=== PATIENT | female | born 2000 | race Caucasian/White ===

== ENCOUNTER 2022-05-31 04:53 | Emergency (ER) ==
[~2022-05-31] VITALS: Ht 154.9 cm; Wt 51.8 kg
[2022-05-31 05:28] VITALS: BP 162/100
[2022-05-31 05:32] LABS: BASO # 0.1 10^3/uL (0.0-0.2); BASO % 0.3 % (0.0-1.0); HEMATOCRIT 27.7 % (36.0-47.0); HEMOGLOBIN 9.1 g/dl (12.0-15.5); LYMPH # 1.6 10^3/uL (1.5-5.0); LYMPH % 5.6 % (24.0-44.0); MEAN CORPUSCULAR HEMOGLOBIN 29.4 pg (27.0-33.0); MEAN CORPUSCULAR HGB CONC 32.9 g/dl (32.0-36.5); MEAN CORPUSCULAR VOLUME 89.6 fl (80.0-96.0); MONO # 1.2 10^3/uL (0.0-0.8); MONO % 4.1 % (2.0-8.0); NEUTROPHILS # 26.1 10^3/uL (1.5-8.5); NEUTROPHILS % 89.1 % (36.0-66.0); PLATELET COUNT, AUTOMATED 277 10^3/uL (150-450); RED BLOOD COUNT 3.09 10^6/uL (4.00-5.40); WHITE BLOOD COUNT 29.3 10^3/uL (4.0-10.0)
[2022-05-31] MEDS ORDERED: BUTORPHANOL 2 MG/ML 1ML VIAL IV ONE (05:40)
[2022-05-31] MEDS ORDERED: NS 1,000 ML IV ONE (05:45)
[2022-05-31 05:57] LABS: ALBUMIN 2.6 G/DL (3.2-5.2); ALKALINE PHOSPHATASE 133 U/L (46-116); ALT/SGPT 12 U/L (7.0-40); AST/SGOT 13 U/L (<34); BILIRUBIN,TOTAL 0.2 MG/DL (0.3-1.2); BLOOD UREA NITROGEN 14 MG/DL (9-23); CALCIUM LEVEL 9.2 MG/DL (8.5-10.1); CARBON DIOXIDE LEVEL 20 MMOL/L (20-31); CHLORIDE LEVEL 108 MMOL/L (98-107); CREATININE FOR GFR 0.75 MG/DL (0.55-1.30); GLUCOSE, FASTING 102 MG/DL (60-100); POTASSIUM SERUM 4.1 MMOL/L (3.5-5.1); SODIUM LEVEL 139 MMOL/L (136-145); TOTAL PROTEIN 6.1 G/DL (5.7-8.2)
[2022-06-01] MEDS ORDERED: HEAL1TAB6 PO (09:11)
== END 2022-05-31 05:53 | disposition admitted as inpatient to this hospital (09) ==
LOC: M ED 04:53
DX: O45.93 Premature separation of placenta, unspecified, third trimester (principal); Z3A.29 29 weeks gestation of pregnancy

== ENCOUNTER 2022-05-31 05:54 | Inpatient (IN) | payer MEDICAID, SELFPAY ==
[2022-05-31] VITALS (19 sets, daily range): BP systolic 114–149; BP diastolic 76–122
[~2022-05-31] VITALS: Ht 154.9 cm; Wt 57.0 kg
[2022-05-31] MEDS ORDERED: LIDOCAINE 1% MDV 20ML VIAL INFIL PRN (05:55)
[2022-05-31] MEDS ORDERED: LR 1,000 ML IV SCH ×3 (05:55→07:40)
[2022-05-31] MEDS ORDERED: OXYTOCIN DRIP 30 UNITS in IV 1 EA IV PRN (05:55)
[2022-05-31] MEDS ORDERED: BETAMETHASONE SOLUSPAN 6MG/ML 5ML VIAL IM ONE (06:15)
[2022-05-31] MEDS ORDERED: BICITRA 30ML SOLN UDC PO ONE (06:25)
[2022-05-31] MEDS ORDERED: ceFAZolin SOD 2 GM in IV 1 EA IV ONE (06:25)
[2022-05-31 06:26] LABS: HEMATOCRIT 24.4 % (36.0-47.0); MEAN CORPUSCULAR HEMOGLOBIN 29.5 pg (27.0-33.0); MEAN CORPUSCULAR HGB CONC 32.8 g/dl (32.0-36.5); PLATELET COUNT, AUTOMATED 234 10^3/uL (150-450); RED BLOOD COUNT 2.71 10^6/uL (4.00-5.40); WHITE BLOOD COUNT 26.1 10^3/uL (4.0-10.0)
[2022-05-31] MEDS ORDERED: ceFAZolin 2 GM/D5W 50 ML IV BAG As Ordered ONE (06:28)
[2022-05-31] MEDS ORDERED: BICITRA 30ML SOLN UDC As Ordered ONE (06:28)
[2022-05-31] MEDS ORDERED: NS 1,000 ML IV SCH (06:30)
[2022-05-31] MEDS ORDERED: ePHEDrine SULFATE 25 MG/5 ML(5MG/ML) SYRINGE As Ordered ONE (06:44)
[2022-05-31] MEDS ORDERED: ONDANSETRON 4MG 2ML VIAL As Ordered ONE (06:55)
[2022-05-31] MEDS ORDERED: METOCLOPRAMIDE INJ 10MG/2ML VIAL As Ordered ONE (06:55)
[2022-05-31] MEDS ORDERED: MORPHINE PRES-FREE INJ 10 MG/10 ML VIAL As Ordered ONE (06:56)
[2022-05-31] MEDS ORDERED: OXYTOCIN 30UNITS IN 0.9% NaCl 500ML IV BAG As Ordered ONE ×2 (06:58→07:27)
[2022-05-31] MEDS ORDERED: PHENYLephrine 500MCG 5ML (100MCG/ML) SYRINGE As Ordered ONE (06:58)
[2022-05-31 07:00] LABS: CORD GAS ABE A -13.2; CORD GAS HCO3 A 17.7 MEQ/L; CORD GAS PCO2 A 62.7 mmHg; CORD GAS PH A 7.069 UNITS; CORD GAS SBC A 13.3 MEQ/L; CORD GAS TCO2 A 19.6 MEQ/L
[2022-05-31 07:01] LABS: AMPHETAMINES URINE REFLEX NEGATIVE (NEGATIVE); BARBITURATES URINE REFLEX NEGATIVE (NEGATIVE); BENZODIAZEPINES URINE REFLEX NEGATIVE (NEGATIVE); CANNABINOIDS URINE REFLEX NEGATIVE (NEGATIVE); COCAINE METABOLITE URINE REFLE NEGATIVE (NEGATIVE); METHADONE URINE REFLEX NEGATIVE (NEGATIVE); OPIATES URINE REFLEX NEGATIVE (NEGATIVE); PHENCYCLIDINE URINE REFLEX NEGATIVE (NEGATIVE)
[2022-05-31 07:02] LABS: CORD GAS HCO3 V 18.9 MEQ/L; CORD GAS O2 SAT V 29.4 %; CORD GAS PCO2 V 58.7 mmHg; CORD GAS PH V 7.125 UNITS; CORD GAS SBC V 14.6 MEQ/L; CORD GAS TCO2 V 20.7 MEQ/L
[2022-05-31 07:02] LABS: URIC ACID 5.2 MG/DL (3.1-7.8)
[2022-05-31 07:04] LABS: LDH LACTATE DEHYDROGENASE 183 U/L (120-246)
[2022-05-31 07:05] LABS: ALT/SGPT 10 U/L (7.0-40); AST/SGOT 12 U/L (<34); BILIRUBIN,TOTAL 0.2 MG/DL (0.3-1.2); CREATININE FOR GFR 0.74 MG/DL (0.55-1.30)
[2022-05-31] MEDS ORDERED: MEPERIDINE 50 MG/ML 1ML VIAL As Ordered ONE (07:14)
[2022-05-31 07:15] LABS: CREATININE,RANDOM URINE 240.9 MG/DL
[2022-05-31] MEDS ORDERED: KETOROLAC 60MG 2ML VIAL As Ordered ONE (07:16)
[2022-05-31 07:17] LABS: TOTAL PROTEIN,RANDOM URINE 257.8 MG/DL (0.0-14.0)
[2022-05-31] MEDS ORDERED: fentaNYL 100 MCG/2 ML INJECTION IV PRN (07:30)
[2022-05-31] MEDS ORDERED: diphenhydrAMINE 50MG/ML VIAL IV PRN (07:30)
[2022-05-31] MEDS ORDERED: METOCLOPRAMIDE INJ 10MG/2ML VIAL IV PRN (07:30)
[2022-05-31] MEDS: SLF 3 ML SYR IV SCH ×3 (07:30→23:30)
[2022-05-31] MEDS ORDERED: **NOTE PATIENT COMMENT** MISC XX SCH (07:30)
[2022-05-31] MEDS ORDERED: ONDANSETRON 4MG 2ML VIAL IV PRN ×2 (07:30→07:40)
[2022-05-31] MEDS ORDERED: NALOXONE INJ 0.4MG/1ML VIAL IV PRN ×2 (07:30)
[2022-05-31] MEDS ORDERED: MORPHINE 2 MG/ML 1ML VIAL IV PRN (07:30)
[2022-05-31 07:38] LABS: HIV 1&2 SCREEN CENTAUR NEGATIVE (NEGATIVE)
[2022-05-31] MEDS ORDERED: SIMETHICONE 80MG CHEW TAB PO PRN (07:40)
[2022-05-31] MEDS ORDERED: OXYTOCIN DRIP 30 UNITS in IV 1 EA IV SCH (07:40)
[2022-05-31] MEDS ORDERED: RHOGAM 300MCG (1500IU) INJ IM SCH (07:40)
[2022-05-31] MEDS ORDERED: DOCUSATE SODIUM 100MG CAPSULE PO PRN (07:40)
[2022-05-31] MEDS ORDERED: PERCOCET 5MG/325MG TAB PO PRN (07:40)
[2022-05-31] MEDS ORDERED: NIFEdipine 10 MG CAP PO STA (11:37)
[2022-05-31] MEDS ORDERED: CALCIUM GLUCONATE 1,000 MG in D5W MINI-BAG PLUS 100 ML IV PRN (11:40)
[2022-05-31] MEDS ORDERED: MAG Sulf (L&D) 4 GM/100 ML 4 GM in IV 1 EA IV ONE (11:40)
[2022-05-31] MEDS: MAG Sulf (OBGYN) 20GM/500ML 20,000 MG in IV 1 EA IV SCH ×2 (12:24→22:35)
[2022-05-31 14:22] LABS: HEMATOCRIT 30.6 % (36.0-47.0); MEAN CORPUSCULAR HEMOGLOBIN 29.9 pg (27.0-33.0); MEAN CORPUSCULAR VOLUME 90.5 fl (80.0-96.0); PLATELET COUNT, AUTOMATED 185 10^3/uL (150-450); RED BLOOD COUNT 3.38 10^6/uL (4.00-5.40); WHITE BLOOD COUNT 29.3 10^3/uL (4.0-10.0)
[2022-05-31 14:25] LABS: HEMOGLOBIN 10.1 g/dl (12.0-15.5)
[2022-05-31] MEDS: LR 1,000 ML IV SCH (15:26)
[2022-05-31] MEDS: KETOROLAC 30 MG/ML 1ML VIAL IV SCH ×2 (19:44→20:00)
[2022-06-01] VITALS (24 sets, daily range): BP systolic 125–156; BP diastolic 71–107
[2022-06-01] MEDS: PERCOCET 5MG/325MG TAB PO PRN ×2 (00:36→09:32)
[2022-06-01] MEDS: LABETALOL 100MG TAB PO SCH ×3 (01:40→21:02)
[2022-06-01] MEDS: KETOROLAC 30 MG/ML 1ML VIAL IV SCH (02:00)
[2022-06-01] MEDS: LR 1,000 ML IV SCH ×2 (04:00→17:20)
[2022-06-01] MEDS ORDERED: MAG Sulf (OBGYN) 20GM/500ML 20,000 MG in IV 1 EA IV SCH (05:40)
[2022-06-01 06:36] LABS: HEMATOCRIT 28.3 % (36.0-47.0); HEMOGLOBIN 9.6 g/dl (12.0-15.5); MEAN CORPUSCULAR HGB CONC 33.9 g/dl (32.0-36.5); MEAN CORPUSCULAR VOLUME 88.4 fl (80.0-96.0); PLATELET COUNT, AUTOMATED 169 10^3/uL (150-450); WHITE BLOOD COUNT 20.7 10^3/uL (4.0-10.0)
[2022-06-01] MEDS ORDERED: KETOROLAC 30 MG/ML 1ML VIAL IV ONE (08:30)
[2022-06-01] MEDS: PRENATAL VITAMINS CHEWABLE TABLET PO SCH (08:57)
[2022-06-01] MEDS: SLF 3 ML SYR IV SCH (09:03)
[2022-06-01] MEDS ORDERED: HEAL1TAB6 PO (09:11)
[2022-06-01] MEDS ORDERED: HOME MED LIST COMPLETE! XX SCH (09:15)
[2022-06-01] MEDS: IBUPROFEN 800 MG TAB PO SCH (18:00)
[2022-06-02] MEDS: IBUPROFEN 800 MG TAB PO SCH ×2 (01:01→07:50)
[2022-06-02 02:00] VITALS: BP 134/98
[2022-06-02 06:00] VITALS: BP 131/90
[2022-06-02] MEDS: PRENATAL VITAMINS CHEWABLE TABLET PO SCH (07:49)
[2022-06-02 07:50] VITALS: BP 141/89
[2022-06-02] MEDS: LABETALOL 100MG TAB PO SCH (07:50)
[2022-06-02] MEDS ORDERED: MEASLES,MUMPS,RUBELLA VACCINE INJ (MMR-II) SC.IMMUN ONE (09:00)
[2022-06-02] MEDS ORDERED: IBUP80TA PO (09:57)
[2022-06-02] MEDS ORDERED: LABE100T6 PO (09:57)
[2022-06-02] MEDS ORDERED: PERCOCET PO (09:57)
== END 2022-06-02 10:25 | disposition home or self-care (01) | DRG 540 ==
LOC: M LDI 05:54 → M OBS 06-01 12:15
PROVIDERS: ADMIT Specialist; ATTEND Specialist
PROC: 10D00Z1 Extraction of Products of Conception, Low, Open Approach (ICD-10-PCS; principal; 2022-05-31 07:00)
DX: O45.93 Premature separation of placenta, unspecified, third trimester (principal); O60.14X0 Preterm labor third trimester with preterm delivery third trimester, not applicable or unspecified; Z3A.29 29 weeks gestation of pregnancy; Z37.0 Single live birth; O14.14 Severe pre-eclampsia complicating childbirth; O09.33 Supervision of pregnancy with insufficient antenatal care, third trimester; O76 Abnormality in fetal heart rate and rhythm complicating labor and delivery; O69.81X0 Labor and delivery complicated by cord around neck, without compression, not applicable or unspecified